=== PATIENT | female | born 1965 | race Caucasian/White ===

== ENCOUNTER 2020-10-06 03:42 | Emergency (ER) | payer OTHER ==
[~2020-10-06 03:42] MED LIST: AMBIEN10 MG PO; CRESTOR10 MG PO; DIGITEK125 MCG PO; FEOSOL325 MG PO; FLEXERIL10 MG PO; GLUCOPHAGE1000 MG PO; GLUCOTROL10 MG PO; LANTUS **100 UNITS/ SC; LASIX40 MG PO; LEVAQUIN750 MG PO; LOPRESSOR50 MG PO; NAPROSYN250 MG PO; NEXIUM40 MG PO; NORCO 5-325 TA1 EACH PO; PHENERGAN25 M1 PO; PROZAC40 MG PO; TAMIFLU 75MG CA75 MG PO; TESSALON PERLE100 MG PO; ZESTRIL2.5 MG PO; ZOVIRAX200 MG PO; ZYRTEC10 M3 PO
[2020-10-06] MEDS ORDERED: MEDROL 4MG DOSEP4 MG PO (04:50)
[2020-10-06] MEDS ORDERED: NORCO 5-325 TA1 EACH PO (04:50)
== END 2020-10-06 04:55 | disposition home or self-care (01) ==
LOC: FER 03:42
DX: M06.831 Other specified rheumatoid arthritis, right wrist (principal); E11.9 Type 2 diabetes mellitus without complications; I10 Essential (primary) hypertension; Z90.10 Acquired absence of unspecified breast and nipple; Z79.84 Long term (current) use of oral hypoglycemic drugs; Z79.899 Other long term (current) drug therapy; Z91.040 Latex allergy status; Z88.1 Allergy status to other antibiotic agents; Z91.018 Allergy to other foods
CPT/HCPCS: 73110; J1040